=== PATIENT | male | born 2000 | race Caucasian/White ===

== ENCOUNTER 2019-01-14 11:51 | Emergency (ER) | payer SELFPAY ==
[~2019-01-14] VITALS: Ht 175.3 cm; Wt 74.8 kg
--- NOTE | 2019-01-14 12:13 | NUR ---
C/O SOB SINCE LAST NIGHT. TAKING ALBUTEROL INHALER. STATES HAVING HEADACHE PAIN LEVEL 4/10. MOM AT BEDSIDE, CONCERNED ABOUT SINUS INFECTION. SEEN BY DR RIVERA. CALLED RT FOR BREATHING TX. WILL CONT TO MONITOR.
[2019-01-14] MEDS ORDERED: ALBUTEROL FS 2.5 MG/3 ML VIAL.NEB ONE (12:21)
[2019-01-14] MEDS ORDERED: ACETAMINOPHEN ES 500 MG TABLET ONE (12:22)
[2019-01-14] MEDS ORDERED: AZITHROMYCIN 250 MG TABLET ONE (12:23)
--- NOTE | 2019-01-14 12:23 | NUR ---
RT AT BEDSIDE FOR BREATHING TX
--- NOTE | 2019-01-14 12:25 | NUR ---
XRAY AT BEDSIDE
[2019-01-14] MEDS ORDERED: ACETAMINOPHEN 325 MG TABLET PO ONE (12:30)
[2019-01-14] MEDS ORDERED: ALBUTEROL FS 2.5 MG/3 ML VIAL.NEB NEB ONE (12:30)
[2019-01-14] MEDS ORDERED: AZITHROMYCIN 250 MG TABLET PO ONE (12:30)
[2019-01-14 13:05] VITALS: BP 120/78
--- NOTE | 2019-01-14 13:05 | NUR ---
Patient discharged to home in stable condition. Written and verbal after care instructions given. Patient verbalizes understanding of instruction.
== END 2019-01-14 13:06 | disposition home or self-care (01) ==
LOC: ER 11:55
DX: J20.9 Acute bronchitis, unspecified (principal); J45.909 Unspecified asthma, uncomplicated
CPT/HCPCS: 71045-TC